=== PATIENT | male | born 1985 | race Caucasian/White ===

== ENCOUNTER 2018-10-11 09:07 | Emergency (ER) | payer SELFPAY ==
[~2018-10-11] VITALS: Ht 170.2 cm; Wt 88.6 kg
[2018-10-11 09:17] VITALS: BP 132/87
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
[2018-10-11] MEDS ORDERED: CLINDAMYCIN 600 MG in DEXTROSE 5% 50 ML IV ONE (09:30)
--- NOTE | 2018-10-11 09:39 | NUR ---
PT. D/C BUT ORDER FOR IV ANTIBIOTICS PRESENT, PENDING D/C
[2018-10-11] MEDS ORDERED: CLINDAMYCIN 600 MG/4 ML VIAL ONE (09:49)
--- NOTE | 2018-10-11 10:36 | NUR ---
PT. RESTING COMFORTABLY IN BED,RR EVEN AND UNLABORED. HOB ELEVATED, PLAYING IN CELL PHONE. AT BEDSIDE. WILL CONTINUE TO MONITOR. SAFETY PRECAUTIONS IN PLACE
[2018-10-11 10:54] VITALS: BP 138/73
--- NOTE | 2018-10-11 10:54 | NUR ---
Patient discharged with v/s stable. Written and verbal after care instructions given and explained. Patient alert, oriented and verbalized understanding of instructions. Ambulatory with steady gait. All questions addressed prior to discharge. ID band removed. Patient advised to follow up with PMD. Rx of CLINDAMYCIN 300MG, AND BACTRIM DS 800MG-160MG given. Patient educated on indication of medication including possible reaction and side effects. Opportunity to ask questions provided and answered.
== END 2018-10-11 10:54 | disposition home or self-care (01) ==
LOC: MED 09:07
DX: L03.115 Cellulitis of right lower limb (principal)
CPT/HCPCS: 96365; 99283; J3490; J7060

== ENCOUNTER 2021-03-25 16:51 | Emergency (ER) | payer SELFPAY ==
[~2021-03-25] VITALS: Ht 170.2 cm; Wt 90.7 kg
--- NOTE | 2021-03-25 18:02 | NUR ---
PT AMBUALTED TO CHAIR C
[2021-03-25 18:04] VITALS: BP 132/79
--- NOTE | 2021-03-25 18:06 | NUR ---
PT'S WOUND CLEANED AND IRRIGATED WITH NORMAL SALINE
--- NOTE | 2021-03-25 18:07 | NUR ---
PT AMBULATED TO XRAY
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
[2021-03-25] MEDS ORDERED: LIDOCAINE 2% 1000 MG/50 ML VIAL INJ ONE (18:30)
[2021-03-25] MEDS ORDERED: CEPH-588 PO (18:52)
[2021-03-25 19:07] VITALS: BP 132/79
== END 2021-03-25 19:08 | disposition home or self-care (01) ==
LOC: MED 16:51
DX: S60.552A Superficial foreign body of left hand, initial encounter (principal); X58.XXXA Exposure to other specified factors, initial encounter; Y93.89 Activity, other specified; Y92.89 Other specified places as the place of occurrence of the external cause; Y99.8 Other external cause status
CPT/HCPCS: 73130; 99284; J2001